=== PATIENT | female | born 1975 | race Caucasian/White ===

== ENCOUNTER 2016-12-02 12:34 | Inpatient (IN) | payer MEDICAID ==
[~2016-12-02] VITALS: Ht 154.9 cm; Wt 95.7 kg
[~2016-12-02 12:34] MED LIST: ACET1TAB40 PO; AMOX500C2 PO; IBUP-1542 PO
[2016-12-02] MEDS ORDERED: SOD CHLORIDE 0.9% 1,000 ML IV STA (15:54)
--- NOTE | 2016-12-02 16:16 | RADRPT ---
PROCEDURE: XR Chest. CLINICAL INDICATION: Abdominal pain TECHNIQUE: Single frontal view of the chest was obtained COMPARISON: None FINDINGS: No pleural effusion or pneumothorax. No consolidation. Bibasilar atelectasis. Top normal cardiomediastinal silhouette. No acute osseous abnormality. IMPRESSION: No acute cardiopulmonary disease. Low lung volumes with bibasilar atelectasis. RPTAT: EE Yohana Zaidi Physician Date Time Electronically viewed and signed by Yohana Zaidi Physician on 12/02/2016 16:15 /
[2016-12-02 16:20] LABS: ABNORMAL IP MESSAGE 1; HEMATOCRIT 15.1 % (37.0-47.0); MEAN CORPUSCULAR HEMOGLOBIN 30.8 pg (29.0-33.0); MEAN CORPUSCULAR HGB CONC 34.4 g/dl (32.0-37.0); MEAN CORPUSCULAR VOLUME 89.3 fl (82.0-101.0); MEAN PLATELET VOLUME 10.3 fl (7.4-10.4); NUCLEATED RED BLOOD CELLS% 8.7 /100WBC (0.0-0.0); RED BLOOD COUNT 1.69 10^6/ul (4.20-5.40); WHITE BLOOD COUNT 1.4 10^3/ul (4.8-10.8)
[2016-12-02 16:23] LABS: ADD UMIC NO; UR ASCORBIC ACID 40 mg/dL (NEGATIVE); UR BACTERIA FEW /HPF (NONE SEEN); UR BILIRUBIN (Dip) NEGATIVE (NEGATIVE); UR BLOOD (Dip) NEGATIVE (NEGATIVE); UR CLARITY SLIGHTLY CLOUDY (CLEAR); UR COLOR YELLOW (YELLOW); UR GLUCOSE (Dip) NEGATIVE (NEGATIVE); UR KETONES (Dip) NEGATIVE (NEGATIVE); UR LEUKOCYTE ESTERASE (Dip) NEGATIVE Leu/ul (NEGATIVE); UR MUCUS FEW /HPF (NONE SEEN); UR NITRITE (Dip) NEGATIVE (NEGATIVE); UR RBC 0 /HPF (0-5); UR SPECIFIC GRAVITY (Dip) 1.021 (1.003-1.030); UR SQUAMOUS EPITHELIAL CELL MODERATE /HPF (FEW); UR TOTAL PROTEIN (Dip) NEGATIVE (NEGATIVE); UR UROBILINOGEN (Dip) NEGATIVE (NEGATIVE)
[2016-12-02 16:28] LABS: ALANINE AMINOTRANSFERASE 127 IU/L (13-69); ALBUMIN 4.4 g/dl (3.3-4.9); ALBUMIN/GLOBULIN RATIO 1.29; ALKALINE PHOSPHATASE 194 IU/L (42-121); ANION GAP 14 (8-16); ASPARTATE AMINO TRANSFERASE 76 IU/L (15-46); BILIRUBIN,INDIRECT 0.4 mg/dl (0-1.1); BILIRUBIN,TOTAL 0.4 mg/dl (0.2-1.3); BLOOD UREA NITROGEN 14 mg/dl (7-20); CALCIUM 9.2 mg/dl (8.4-10.2); CARBON DIOXIDE 25 mmol/L (21-31); CHLORIDE 107 mmol/L (97-110); CREATININE 0.81 mg/dl (0.44-1.00); GLUCOSE 104 mg/dl (70-220); SODIUM 142 mmol/L (135-144); TOTAL PROTEIN 7.8 g/dl (6.1-8.1)
[2016-12-02 16:32] LABS: HEMOGLOBIN 5.2 g/dl (12.0-16.0); PLATELET COUNT 15 10^3/UL (140-415); POSITIVE DIFF @See below
[2016-12-02 16:41] LABS: TROPONIN-I < 0.012 ng/ml (0.00-0.12)
--- NOTE | 2016-12-02 16:54 | ERA ---
ER Documentation Chief Complaint Date/Time DATE: 12/02/16 TIME: 16:51 Chief Complaint fatigue, north, ringing in ears, bodyaches, told at clinic hg 5 HPI 41-year-old woman referred here by clinic for anemia. Patient denies previous anemia although states she has been feeling dizzy lately and has a long history of menorrhagia. Suffering from headaches for the last 2 weeks. Denies active bleeding at this time, denies melena or blood per rectum, no fevers or chills, no chest pain or shortness of breath. Patient denies abdominal pain, no loss of consciousness, no blurry vision. ROS All systems reviewed and are negative except as per history of present illness. Medications Home Meds Discontinued Scripts Amoxicillin* (Amoxicillin*) 500 Mg Cap, 500 MG PO TID, #30 CAP Prov:SUNIL ZEPEDA MD 08/18/15 Acetaminophen-Codeine* (Acetaminophen-Cod #3*) 300-30 Mg Tab, 1 TAB PO Q4H Y for PAIN, #8 TAB Prov:SUNIL ZEPEDA MD 08/18/15 Ibuprofen* (Motrin*) 600 Mg Tab, 600 MG PO Q6, #14 TAB Prov:SUNIL ZEPEDA MD 08/18/15 Allergies Allergies: Coded Allergies: No Known Allergy (Unverified , 12/03/16) PMhx/Soc History of Surgery: No Anesthesia Reaction: No Hx Neurological Disorder: Yes (Seizures) Hx Respiratory Disorders: No Hx Cardiac Disorders: No Hx Psychiatric Problems: No Hx Miscellaneous Medical Probl: Yes (Anemia) Hx Alcohol Use: No Hx Substance Use: No Hx Tobacco Use: No Smoking Status: Never smoker FmHx Family History: No diabetes Physical Exam Vitals Vital Signs Date Time Temp Pulse Resp B/P Pulse Ox O2 Delivery O2 Flow Rate FiO2 12/02/16 17:52 98.7 76 18 130/73 99 Room Air 12/02/16 16:05 98.7 82 18 118/62 99 Room Air 12/02/16 13:01 99.4 87 20 115/58 99 Physical Exam GENERAL: Well-developed, well-nourished, appears anemic, afebrile HEENT: Dry mucous membranes, pale conjunctiva, no cervical spine tenderness or step-off deformities, no goiter, no jaundice or icterus, extraocular movements intact without pain. No submandibular induration, and no pharyngeal erythema NEURO: Alert and oriented 3, cranial nerves II through XII intact bilaterally, pupils equal round reactive to light, no focal deficits or facial asymmetry, sensation intact distally Strength 5/5 in upper and lower extremities bilaterally CARDIAC: Regular rate and rhythm, no murmurs rubs or gallops LUNGS: Clear bilaterally no wheezing crackles or stridor ABDOMEN: Soft nontender, no guarding, no rigidity, no rebound, no psoas sign no obturator sign. Normoactive bowel sounds SKIN: Warm and dry to touch, no abrasions, contusions, or hematomas, no lacerations, no ecchymosis, no target lesions, and without ulcers EXTREMITIES: No clubbing cyanosis or edema, calves are bilaterally symmetrical, no Homans sign, no popliteal cord sign. Distal pulses equal and bilateral PSYCH: Normal affect without agitation or irritability Result Diagram: 12/04/16 0640 12/04/16 0640 Results 24 hrs Laboratory Tests Test 12/02/16 15:15 12/02/16 18:10 White Blood Count 1.410^3/ul Red Blood Count 1.6910^6/ul Hemoglobin 5.2g/dl Hematocrit 15.1% Mean Corpuscular Volume 89.3fl Mean Corpuscular Hemoglobin 30.8pg Mean Corpuscular Hemoglobin Concent 34.4g/dl Red Cell Distribution Width 14.0% Platelet Count 1510^3/UL Mean Platelet Volume 10.3fl Neutrophils % % Segmented Neutrophils % (Manual) 12% Band Neutrophils % (Manual) 1% Lymphocytes % % Lymphocytes % (Manual) 87% Monocytes % % Monocytes % (Manual) 1% Eosinophils % % Basophils % % Nucleated Red Blood Cells % 8.7/100WBC Neutrophils # 10^3/ul Neutrophils # (Manual) 0.210^3/ul Band Neutrophils # 0.010^3/ul Absolute Lymphocytes (Manual) 1.210^3/ul Lymphocytes # 1.210^3/ul Monocytes # 0.010^3/ul Absolute Monocytes (Manual) 0.010^3/ul Eosinophils # 10^3/ul Basophils # 10^3/ul Nucleated Red Blood Cells # 10^3/ul Pathologist Review (Hematology) CH Urine Color YELLOW Urine Clarity SLIGHTLY CLOUDY Urine pH 6.0 Urine Specific [place] 1.021 Urine Ketones NEGATIVEmg/dL Urine Nitrite NEGATIVEmg/dL Urine Bilirubin NEGATIVEmg/dL Urine Urobilinogen NEGATIVEmg/dL Urine Leukocyte Esterase NEGATIVELeu/ul Urine Microscopic RBC 0/HPF Urine Microscopic WBC 1/HPF Urine Squamous Epithelial Cells MODERATE/HPF Urine Bacteria FEW/HPF Urine Mucus FEW/HPF Urine Hemoglobin NEGATIVEmg/dL Urine Glucose NEGATIVEmg/dL Urine Total Protein NEGATIVEmg/dl Urine Test NEGATIVE Miscellaneous Test Sodium Level 142mmol/L Potassium Level 4.0mmol/L Chloride Level 107mmol/L Carbon Dioxide Level 25mmol/L Anion Gap 14 Blood Urea Nitrogen 14mg/dl Creatinine 0.81mg/dl Glucose Level 104mg/dl Calcium Level 9.2mg/dl Total Bilirubin 0.4mg/dl Direct Bilirubin 0.00mg/dl Indirect Bilirubin 0.4mg/dl Aspartate Amino Transf (AST/SGOT) 76IU/L Alanine Aminotransferase (ALT/SGPT) 127IU/L Alkaline Phosphatase 194IU/L Troponin I < 0.012ng/ml Total Protein 7.8g/dl Albumin 4.4g/dl Globulin 3.40g/dl Albumin/Globulin Ratio 1.29 Lipase 40U/L Alpha Fetoprotein 1.44IU/L Hepatitis A IgM Antibody NON-REACTIVE Hepatitis A Antibody Total POSITIVE Hepatitis B Surface Antigen NEGATIVE Hepatitis B Surface Antibody NEGATIVE Hepatitis B Core Total Antibody NEGATIVE Hepatitis C Antibody NEGATIVE Hepatitis C RNA (PCR) IUs/ml <15 NOT DETECTEDIU/mL Hepatitis C RNA (PCR) log IUs/ml <1.18 NOT DETECTEDLog Hepatitis C RNA Comment SEE NOTE Hemoglobin A1c % Current Medications Medications (Trade) Dose Ordered Sig/Nathan Route PRN Reason Start Time Stop Time Status Last Admin Dose Admin Sodium Chloride (NS) 1,000 ml @ 1,000 mls/hr Q1H STAT IV 12/02/16 15:54 12/02/16 16:53 DC 12/02/16 16:04 Acetaminophen (Tylenol Tab) 325 mg STK-MED ONCE .ROUTE 12/02/16 18:15 12/02/16 18:16 DC Procedures/MDM IV line was established patient was placed on field marketing lead rhythm strip revealed a sinus rhythm at about 80 bpm with upright P and T waves. Patient was afebrile. EKG performed, read by me: 77 bpm, normal sinus rhythm, normal axis, no acute ST segment changes, narrow QRS complex, with good R-wave progression in precordial leads. I administered 1 L normal saline intravenously and acetaminophen 650 mg p.o. for complaints of pain. Initial CBC reveals pancytopenia with a hemoglobin of 5.2, WBCs 1.4, liver function tests revealed mild transaminitis, electrolytes unremarkable. Urinalysis negative for infection. I ordered transfusion 1 unit PRBC IV over 2 hours. Patient will be admitted to [facility] for continued medical management Departure Diagnosis: Primary Impression: Symptomatic anemia Additional Impressions: Pancytopenia Menorrhagia Qualified Code: N92.1 - Menorrhagia with irregular cycle Condition: EREN Herrera MD Dec 02, 2016 16:54
[2016-12-02 18:03] LABS: HEPATITIS B CORE ANTIBODY NEGATIVE (NEGATIVE)
[2016-12-02] MEDS ORDERED: ACETAMINOPHEN 325 MG TAB ONE (18:15)
[2016-12-02 18:29] LABS: LYMPHOCYTES # 1.2 10^3/ul (0.8-2.9); MONOCYTES % (M) 1 % (0-11)
[2016-12-02] MEDS ORDERED: ACETAMINOPHEN 650 MG SUPP PR PRN (19:30)
[2016-12-02] MEDS ORDERED: ONDANSETRON 4 MG INJ IV PRN (19:30)
[2016-12-02] MEDS ORDERED: NACL 0.9% 3 ML SYG IV SCH (19:30)
--- NOTE | 2016-12-02 22:55 | RADRPT ---
PROCEDURE: CT Brain without contrast. CLINICAL INDICATION: Headaches and pancytopenia TECHNIQUE: A CT of the brain was performed on a [employer] CT scanner utilizing axial imaging f rom the skull base through the vertex without IV contrast. Multiplanar reformatted images were made . Images were reviewed on a PACS workstation. The CTDIvol is 44.73 mGy and the DLP is 720.23 mGycm . One of the following 3 dose reduction techniques were used during this CT examination: 1) Automated exposure control 2) Adjustment of the mA +/- kV according to patient size or 3) Use of iterative reconstruction technique COMPARISON: None FINDINGS: There is no intracranial hemorrhage, mass effect, or midline shift. No extra-axial fluid collection is seen. The ventricles and sulci are normal in size and configuration. The density of the brain is normal, and the marr white matter differentiation appears well-preserved. The visualized scalp and calvarium are normal. The bilateral orbits are normal. The bilateral parana joseph sinuses, mastoid air cells and middle ear cavities are clear. IMPRESSION: 1. No evidence of acute intracranial hemorrhage, infarcts, or acute intracranial pathology. 2. Normal noncontrast head CT. RPTAT: [facility] .Yamileth Holm MD, Date Time Electronically viewed and signed by .Yamileth Holm MD, MD on 12/02/2016 22:54 .C/
[2016-12-02 23:14] VITALS: TEMP 98.5
--- NOTE | 2016-12-02 23:22 | HP ---
Date/Time of Note Date/Time of Note DATE: 12/02/16 TIME: 23:21 Assessment/Plan VTE Prophylaxis VTE Prophylaxis Intervention: SCD's Assessment/Plan Chief Complaint/Hosp Course This is a 41-year-old female being admitted to the telemetry floor for: #1 symptomatic anemia: Hemoglobin of 5.2 on admission. Will check iron studies. 2 units of PRBCs ordered. This along with #2 is concerning for a malignant process. Will order a reticulocyte count, haptoglobin level, lactic dehydrogenase level. Will check RBC indices. Will consult hematology. Will also order vaginal ultrasound, and consult CORPORATION SECRETARY if indicated. #2 pancytopenia: Patient leukopenic, anemic, and thrombocytopenic This likely is concerning for underlying malignant process. Please see #1 for labs ordered. Will consult hematology for further assistance and possible bone marrow biopsy. #3 menorrhagia: We will check a vaginal ultrasound, urine test was negative. Will also order a CT scan of the abdomen and pelvis with and without contrast. #4 persistent headaches: Reported 8 month history of headaches. CAT scan of the brain was normal. Will order an MRI of the brain. #5 transaminitis: We will check a CT of the abdomen and pelvis. Will check hepatitis panel. #6 DVT GI prophylaxis: SCDs, Protonix Further treatment strategy will be implemented as per the clinical course Problems: HPI/ROS Admit Date/Time Admit Date/Time Hx of Present Illness cc: fatigue, low hgb, headache for 8 months This is a 41-year-old female who comes in today from urgent care with symptoms of symptomatic anemia with hemoglobin of 5 and headaches for approximately 8 weeks. Patient states that for the past 2 weeks she has been feeling dizzy and fatigued which led her to go to the urgent care. She was found there to have a hemoglobin of 5 and was told to come to the ER. She states that for the past 2 months she did not have her normal. And then recently restarted with heavy bleeding. Patient also reports that she has been dealing with daily headaches that have been occurring for approximately 8 months. They occur a day and at night. She denies any weight loss. She does report shortness of breath and again feeling fatigued and tired easily. Denies any hematuria denies any hematemesis denies any hematochezia. She had a mammogram approximately 3 months ago which she states was normal. Allergies: NKDA Medications: None ROS Const: As per HPI Eyes : No pain discharge or redness or change in visual acuity ENT: No pain, sore throat, congestion, congestion, dysphagia or discharge Respiratory: No shortness of breath, cough, sputum, wheezing, or pleuritic pain Cardiovascular: No chest pain, palpitation, PND, or edema GI : no change in appetite, abdominal pain, nausea, vomiting, diarrhea, constipation, or change in the color his stool Genitourinary: As per HPI Musculoskeletal: No joint pain, back pain, neck pain, restricted range of motion in neck or joints Skin: No rash, bruising or hives Neuro: As per HPI Endocrine: No polyuria, polydipsia, temperature intolerance Psych: No hallucination, depression, anxiety or suicidal ideation PMH/Family/Social Past Medical History History of epilepsy, last seizure 2 years ago Past Surgical History Past Surgical Hx: no surgical history Family History Significant Family History: other (Anemia, diabetes mellitus) Social History Alcohol Use: none Smoking Status: Never smoker Drug Use: none Exam/Review of Systems Vital Signs Vitals Vital Signs Date Time Temp Pulse Resp B/P Pulse Ox O2 Delivery O2 Flow Rate FiO2 12/02/16 23:14 98.5 71 16 116/73 99 Room Air Exam Exam General: Patient is sitting in bed in no acute distress. Patient does appear slightly pale, obese HEENT: Atraumatic, normocephalic. The pupils are equal, round and reactive. Extraocular motor are intact, conjunctiva pale bilaterally Neck: Supple with full range of motion. No rigidity or meningismus Lungs: Clear to auscultation bilaterally no crackles rales or wheezing Heart: Normal S1-S2, Regular rhythm and rate. Abdomen: Soft , nontender, nondistended , bowel sounds are present. No guarding no rebound tenderness , No masses or organomegaly. No costovertebral temporal angle mass Extremities: Normal to inspection, no edema no cyanosis Neurologic: Normal mental status, speech normal, cranial nerves II through XII are intact, motor and sensory are intact, no focal weakness Genital exam: Deferred Skin: Patient does appear slightly pale, conjunctiva pale bilaterally Additional Comments PROCEDURE: CT Brain without contrast. CLINICAL INDICATION: Headaches and pancytopenia TECHNIQUE: A CT of the brain was performed on a [employer] CT scanner utilizing axial imaging from the skull base through the vertex without IV contrast. Multiplanar reformatted images were made. Images were reviewed on a PACS workstation. The CTDIvol is 44.73 mGy and the DLP is 720.23 mGycm. One of the following 3 dose reduction techniques were used during this CT examination: 1) Automated exposure control 2) Adjustment of the mA +/- kV according to patient size or 3) Use of iterative reconstruction technique COMPARISON: None FINDINGS: There is no intracranial hemorrhage, mass effect, or midline shift. No extra- axial fluid collection is seen. The ventricles and sulci are normal in size and configuration. The density of the brain is normal, and the marr white matter differentiation appears well-preserved. The visualized scalp and calvarium are normal. The bilateral orbits are normal. The bilateral paranasal sinuses, mastoid air cells and middle ear cavities are clear. IMPRESSION: 1. No evidence of acute intracranial hemorrhage, infarcts, or acute intracranial pathology. 2. Normal noncontrast head CT. RPTAT: [facility] .Yamileth Holm MD, Date Time Electronically viewed and signed by .Yamileth Holm MD, MD on 12/02/2016 22: 54 .C/ CC: VELVET LIVINGSTON PROCEDURE: XR Chest. CLINICAL INDICATION: Abdominal pain TECHNIQUE: Single frontal view of the chest was obtained COMPARISON: None FINDINGS: No pleural effusion or pneumothorax. No consolidation. Bibasilar atelectasis. Top normal cardiomediastinal silhouette. No acute osseous abnormality. IMPRESSION: No acute cardiopulmonary disease. Low lung volumes with bibasilar atelectasis. RPTAT: EE Physician Ramona Date Time Electronically viewed and signed by Physician Ramona on 12/02/2016 16 :15 GC/ CC: EREN JIMENEZ MD Labs Result Diagram: 12/02/16 1515 12/02/16 1515 Medications Medications Current Medications Sodium Chloride (NS) 1,000 ml @ 100 mls/hr Q10H IV ; Start 12/02/16 at 19:15 Ondansetron HCl (Zofran Inj) 4 mg Q6H PRN IV NAUSEA AND/OR VOMITING; Start at 19:30 Acetaminophen (Tylenol Supp) 650 mg Q6H PRN SD PAIN LEVEL 1-3 OR FEVER; Start 12/02/16 at 19:30 Furosemide (Lasix) 20 mg ONCE ONCE IV ; Start 12/02/16 at 23:30; Stop at 23:31; Status VELVET BEAR Dec 02, 2016 23:22
[2016-12-02 23:25] VITALS: Ht 154.9 cm; Wt 95.7 kg
[2016-12-02 23:30] LABS: RETICULOCYTE COUNT % 0.8 % (0.5-1.5)
[2016-12-02] MEDS ORDERED: FUROSEMIDE 20 MG INJ IV ONE (23:30)
[2016-12-03] VITALS (10 sets, daily range): BP systolic 108–148; BP diastolic 61–89; PULSE 64–81; RESP 17–20
[2016-12-03] MEDS: SOD CHLORIDE 0.9% 1,000 ML IV SCH ×3 (00:25→15:15)
[2016-12-03] MEDS: PANTOPRAZOLE 40 MG INJ IV SCH (06:57)
--- NOTE | 2016-12-03 07:52 | RADRPT ---
PROCEDURE: US Pelvis. CLINICAL INDICATION: Menorrhagia. Pancytopenia. TECHNIQUE: Sonographic evaluation of the pelvis was performed utilizing both transabdominal and tr ansvaginal technique.Curved array transabdominal transducer technique as well as a high frequency en dovaginal probe was utilized. Images were reviewed on the high-resolution PACS workstation. COMPARISON: No prior studies are available for comparison. FINDINGS: The uterus is normal in size, echogenicity, and morphology and measures 8.5 x 4.9 x 5.2 cm. The en dometrium is mildly thickened measuring 15.5 mm. The right ovary measures 5.7 ml in volume. The le ft ovary measures 3.5 ml in volume. The ovaries are symmetric in size, echogenicity, flow, and morp hology. . There are no adnexal masses. There is no significant free fluid in the pelvis. No other i ncidental abnormality is identified. IMPRESSION: 1. Unremarkable ultrasound of the pelvis. RPTAT: QQ .Michele Kelly MD, MD Date Time Electronically viewed and signed by .Michele Kelly MD, on 12/03/2016 07:52 .L/
[2016-12-03 09:39] LABS: IRON 215 ug/dl (35-150)
[2016-12-03 09:42] LABS: ALBUMIN 4.1 g/dl (3.3-4.9); ALBUMIN/GLOBULIN RATIO 1.24; BILIRUBIN,INDIRECT 0.8 mg/dl (0-1.1); BILIRUBIN,TOTAL 0.8 mg/dl (0.2-1.3); CALCIUM 8.8 mg/dl (8.4-10.2); CREATININE 0.69 mg/dl (0.44-1.00); MAGNESIUM 1.9 mg/dl (1.7-2.5); PHOSPHORUS 3.7 mg/dl (2.5-4.9); POTASSIUM 4.2 mmol/L (3.5-5.1); TOTAL PROTEIN 7.4 g/dl (6.1-8.1)
[2016-12-03 09:49] LABS: TOTAL IRON BINDING CAPACITY 367 ug/dl (241-421)
[2016-12-03 14:16] LABS: ABNORMAL IP MESSAGE 1; HEMATOCRIT 19.5 % (37.0-47.0); MEAN CORPUSCULAR HEMOGLOBIN 30.2 pg (29.0-33.0); MEAN CORPUSCULAR HGB CONC 34.9 g/dl (32.0-37.0); MEAN CORPUSCULAR VOLUME 86.7 fl (82.0-101.0); MEAN PLATELET VOLUME 10.1 fl (7.4-10.4); NUCLEATED RED BLOOD CELLS% 5.6 /100WBC (0.0-0.0); PLATELET COUNT 35 10^3/UL (140-415); RED BLOOD COUNT 2.25 10^6/ul (4.20-5.40); RED CELL DISTRIBUTION WIDTH 14.2 % (11.5-14.5); WHITE BLOOD COUNT 1.8 10^3/ul (4.8-10.8)
[2016-12-03 14:26] LABS: INR 1.06; PROTIME 13.8 Sec (12.2-14.2); PT RATIO 1.1
[2016-12-03 14:27] LABS: PARTIAL THROMBOPLASTIN TIME 27.6 Sec (25.0-35.0)
[2016-12-03 14:46] LABS: POSITIVE DIFF @See below
[2016-12-03 14:49] LABS: HEMOGLOBIN 6.8 g/dl (12.0-16.0)
[2016-12-03] MEDS ORDERED: LIDOCAINE 1% (MDV) 20 ML INJ ONE (15:09)
[2016-12-03] MEDS ORDERED: FENTAnyl 50 MCG/ML VIAL ONE (15:09)
[2016-12-03] MEDS ORDERED: MIDAZOLAM 1 MG/ML 2 ML INJ ONE (15:09)
[2016-12-03 15:10] LABS: PATH REVIEW CH
[2016-12-03] MEDS ORDERED: SOD CHLORIDE 0.9% 100 ML ONE (15:28)
[2016-12-03] MEDS ORDERED: IOHEXOL 300MG/ML 150 ML BTL ONE (15:28)
[2016-12-03 16:02] LABS: ANISOCYTOSIS 1+ (0-0); ERYTHROBLAST% (NRBC) (M) 7 % (0-0); HYPOCHROMASIA 1+ (0-0); PLATELET ESTIMATE DECREASED; POIKILOCYTOSIS 2+ (0-0); POLYCHROMASIA 1+ (0-0)
--- NOTE | 2016-12-03 16:30 | RADRPT ---
PROCEDURE: CT Abdomen and Pelvis with contrast. CLINICAL INDICATION: Abdominal pain, back pain, pancytopenia TECHNIQUE: CT of the abdomen and pelvis was performed on a multi-detector scanner following the un complicated IV administration of 100 cc of Omnipaque 300. Coronal and sagittal images were reformat elena from the axial data set. One or more of the following dose reduction techniques were used: auto mated exposure control, adjustment of the mA and/or kV according to patient size, use of iterative r econstruction technique. CTDI = 21.23 mGy. DLP = 1239.36 mGy-cm. COMPARISON: Ultrasound, 12/03/2016 FINDINGS: The lung bases are clear. The heart size is normal, without pericardial effusion. Cholelithiasis i s noted, without evidence for cholecystitis. Splenomegaly is noted, measuring 15 cm, without evidenc e of focal mass. Liver, biliary tree, pancreas, adrenal glands and kidneys are unremarkable. No urol ithiasis or obstructive uropathy is identified. The stomach is grossly unremarkable. There is no abdominal aortic aneurysm or dissection. There is no retroperitoneal lymphadenopathy. The carine hepatis region is clear. No bowel obstruction, free intraperitoneal air or abscess is identified. The appendix is well visual ized and normal. There is no diverticulosis, diverticulitis or colitis. Urinary bladder, uterus and adnexa are grossly unremarkable. No pelvic mass, free fluid or lymphadenopathy is identified. The surrounding osseous structures are remarkable for mild degenerative enthesopathy of the spine. No osteolytic or osteoblastic lesion is detected. IMPRESSION: 1. Splenomegaly is noted, measuring 15 cm in maximal dimension. 2. Cholelithiasis is seen, without evidence for cholecystitis. 3. No mass, lymphadenopathy, or focal acute inflammatory process is identified. RPTAT: [facility] .Shay Reid MD, Date Time Electronically viewed and signed by .Shay Reid MD, MD on 12/03/2016 16:30 .R/
--- NOTE | 2016-12-03 16:34 | RADRPT ---
PROCEDURE: CT GUIDED PERCUTANEOUS BONE MARROW BIOPSY AND ASPIRATION CLINICAL INDICATION: Pancytopenia TECHNIQUE: Informed consent was obtained from the patient following careful explanation of the risks and benefi ts of the procedure. The procedure was performed under general anesthesia. DLP n/a (Solutions Delivery Consultant) CTDIvol n/a ([employer] Delivery Consultant) One or more of the following post reduction techniques were used: - Automated exposure control. - Adjustment of the mA and/or Kv according to patient's size. - Use of iterative reconstruction technique The patient was placed prone on the CT table. Multiple axial CT images through the pelvis were acqui red without contrast. The iliac bone was localized. A site in the patient's back was selected and ma rked. The area was prepped and draped in the usual sterile fashion. 1% lidocaine was utilized. Unde r CT guidance a 11 gauge co-axial core biopsy needle was advanced into the left iliac bone, parallel to the SI joint.. Only a tiny amount of bone marrow aspirate could be obtained. The needle was then redirected into a different area of the left iliac bone. Still only a tiny amount of blood could be aspirated. Subsequently the needle was advanced into the bone and a core bone biopsy was obtained. There were no immediate complications. COMPARISON: none FINDINGS: As above. Mostly dry tap. Only a small amount of marrow could be aspirated. RPTAT: AA IMPRESSION: Uncomplicated CT-guided bone marrow biopsy and aspiration. Only a small amount of marrow could be aspirated. .Doug Gil MD, MD Date Time Electronically viewed and signed by .Doug Gil MD, on 12/03/2016 16:33 .S/
--- NOTE | 2016-12-03 17:51 | PN ---
Date/Time of Note Date/Time of Note DATE: 12/03/16 TIME: 17:50 Assessment/Plan VTE Prophylaxis VTE Prophylaxis Intervention: SCD's Lines/Catheters IV [facility]from [facility] Saline Lock Urinary Cath still in place: No Assessment/Plan Assessment/Plan #1 symptomatic anemia: getting PRBC transfusino, #2 pancytopenia: Patient leukopenic, anemic, and thrombus cytopenia. This likely is concerning for underlying malignant process. H & O Dr.Sheila Haines has been consulted to see pt #3 menorrhagia: We will check a vaginal ultrasound, urine test was negative. Will also order a CT scan of the abdomen and pelvis with and without contrast. #4 persistent headaches: Reported 8 month history of headaches. CAT scan of the brain was normal. Will order an MRI of the brain. #5 transaminitis: We will check a CT of the abdomen and pelvis. Will check hepatitis panel. #6 DVT GI prophylaxis: SCDs, Protonix Subjective 24 Hr Interval Summary Free Text/Dictation gettign PRBC and FFP now, Pt stable, afebrile, pancytopenic Exam/Review of Systems Vital Signs Vitals Vital Signs Date Time Temp Pulse Resp B/P Pulse Ox O2 Delivery O2 Flow Rate FiO2 12/03/16 16:46 74 12/03/16 16:16 98.0 18 118/88 97 12/02/16 23:14 Room Air Intake and Output 12/02/16 12/02/16 12/03/16 15:00 23:00 07:00 Intake Total 750 ml 1000 ml Balance 750 ml 1000 ml Exam Constitutional: alert Psych: no complaints Eyes: nl conjunctiva ENMT: nl external ears & nose Neck: non-tender, supple Respiratory: clear to auscultation, normal air movement Cardiovascular: nl pulses, regular rate and rhythm Gastrointestinal: non-tender, soft Musculoskeletal: nl extremities to inspection, nl gait and stance Neurological: MANAGER SPRING II-XII intact, nl mental status, nl speech, nl strength Results Result Diagram: 12/03/16 1352 12/03/16 0902 Results 24 hrs Laboratory Tests Test 12/02/16 18:10 12/02/16 23:00 12/03/16 09:02 12/03/16 13:52 Hemoglobin A1c Absolute Reticulocyte Count 0.014 L Percent Reticulocyte Count 0.8 Sodium Level 143 Potassium Level 4.2 Chloride Level 110 Carbon Dioxide Level 24 Anion Gap 13 Blood Urea Nitrogen 13 Creatinine 0.69 Glucose Level 92 Calcium Level 8.8 Phosphorus Level 3.7 Magnesium Level 1.9 Iron Level 215 H Total Iron Binding Capacity 367 Percent Iron Saturation 59 H Ferritin 562.0 H Total Bilirubin 0.8 Direct Bilirubin 0.00 Indirect Bilirubin 0.8 Aspartate Amino Transf (AST/SGOT) 59 H Alanine Aminotransferase (ALT/SGPT) 108 H Alkaline Phosphatase 200 H Lactate Dehydrogenase 1050 H Total Protein 7.4 Albumin 4.1 Globulin 3.30 H Albumin/Globulin Ratio 1.24 White Blood Count 1.8 #L Red Blood Count 2.25 #L Hemoglobin 6.8 #*L Hematocrit 19.5 #L Mean Corpuscular Volume 86.7 Mean Corpuscular Hemoglobin 30.2 Mean Corpuscular Hemoglobin Concent 34.9 Red Cell Distribution Width 14.2 Platelet Count 35 #L Mean Platelet Volume 10.1 Neutrophils % Segmented Neutrophils % (Manual) 6 L Band Neutrophils % (Manual) 1 Lymphocytes % Lymphocytes % (Manual) 88 H Monocytes % Eosinophils % Basophils % Blast Cells % (Manual) 5.0 H Nucleated Red Blood Cells % 7 H Neutrophils # Neutrophils # (Manual) 0.1 L Band Neutrophils # 0.0 Absolute Lymphocytes (Manual) 1.5 Lymphocytes # Monocytes # Eosinophils # Basophils # Nucleated Red Blood Cells # Platelet Estimate DECREASED Platelet Morphology Comment @See below Polychromasia 1+ Hypochromasia 1+ Poikilocytosis 2+ Anisocytosis 1+ Macrocytosis 1+ Prothrombin Time 13.8 Prothrombin Time Ratio 1.1 INR International Normalized Ratio 1.06 Activated Partial Thromboplast Time 27.6 Medications Medications Current Medications Sodium Chloride (NS) 1,000 ml @ 100 mls/hr Q10H IV Last administered on 00:25; Admin Dose 100 MLS/HR; Start 12/02/16 at 19:15 Ondansetron HCl (Zofran Inj) 4 mg Q6H PRN IV NAUSEA AND/OR VOMITING; Start at 19:30 Acetaminophen (Tylenol Supp) 650 mg Q6H PRN PA PAIN LEVEL 1-3 OR FEVER; Start 12/02/16 at 19:30 Pantoprazole (Protonix Iv) 40 mg DAILY@06 IV Last administered on 12/03/16 06 :57; Admin Dose 40 MG; Start 12/03/16 at 06:45 MILTON OLIVIA MD Dec 03, 2016 17:51
[2016-12-03 18:40] LABS: ABNORMAL IP MESSAGE 1; HEMATOCRIT 20.6 % (37.0-47.0); HEMOGLOBIN 7.2 g/dl (12.0-16.0); MEAN CORPUSCULAR HEMOGLOBIN 30.5 pg (29.0-33.0); MEAN CORPUSCULAR VOLUME 87.3 fl (82.0-101.0); MEAN PLATELET VOLUME 10.8 fl (7.4-10.4); NUCLEATED RED BLOOD CELLS% 8.8 /100WBC (0.0-0.0); PLATELET COUNT 36 10^3/UL (140-415); RED BLOOD COUNT 2.36 10^6/ul (4.20-5.40); WHITE BLOOD COUNT 1.5 10^3/ul (4.8-10.8)
[2016-12-03 18:49] LABS: POSITIVE DIFF @See below
[2016-12-03 18:55] LABS: INR 1.07; PROTIME 13.9 Sec (12.2-14.2); PT RATIO 1.1
[2016-12-03 18:56] LABS: PARTIAL THROMBOPLASTIN TIME 29.4 Sec (25.0-35.0)
[2016-12-03 19:42] LABS: EOSINOPHILS % (M) 1 % (0-7); ERYTHROBLAST% (NRBC) (M) 12 % (0-0); GIANT THROMBO% (M) 2 % (0-0); HYPOCHROMASIA 1+ (0-0); MONOCYTES % (M) 5 % (0-11); PLATELET ESTIMATE DECREASED; POIKILOCYTOSIS 2+ (0-0); POLYCHROMASIA 1+ (0-0); REACTIVE LYMPHOCYTES% (M) 13 % (0-0)
[2016-12-03] MEDS ORDERED: morphine 2 MG INJ IV PRN (21:00)
--- NOTE | 2016-12-03 22:16 | CONS ---
Date/Time of Note Date/Time of Note DATE: 12/03/16 TIME: 22:04 Assessment/Plan Assessment/Plan Chief Complaint/Hosp Course 41 yo with #Pancytopenia -peripheral blood demonstrates blasts consistent with leukemia -peripheral blood sent for flow cytometry for definitive diagnosis -BM bx done to evaluate amount of bone marrow involvement. Bone Marrow was sent for flow cytometry and cytogenetics -given the peripheral smear is consistent with leukemia pt will need to be transferred to high level of care as Acute Leukemia CANNOT be treated at this hospital. This is beyond my scope of practice and should be treated at a tertiary care center specializes in treating hematologic malignances and performing bone marrow transplants. Pt can be transferred to [facility], [facility] or [facility] who treat these diseases with specialized multidisciplinary teams -will f/u CBC tomorrow. continue to keep Hg> 8 and platelets > 10 -will draw blood cx and check UA as patient has very high chance of becoming infected given she does not have a functioning immune system. can hold on antibiotics for now, but if she spikes a fever would have a low threshold to start antibiotics Problems: Consultation Date/Type/Reason Admit Date/Time December 02, 2016 Date of Consultation: Dec 03, 2016 Type of Consultation: Hematology Reason for Consultation Pancytopenia Referring Provider: MILTON OLIVIA MD Hx of Present Illness 41 yo female no PMH who for the past 2 weeks has felt dizzy and weak. Her weakness and dizziness became so profound that she presented to the hospital barely able to walk. Pt state her last menstrual period was in September and was regular. She denies any abnormal vaginal bleeding or bleeding from the stool. She denies any weight loss nor recent travel. She does admit to taking Herbal Life for the past 3 months. In the ER patient was found to be severely pancytopenic with a WBC of 1.4, Hg 5.2 and platelet count of 15. Peripheral blood spear also shows circulating blasts consistent with leukemia. Pt has since had 2 units of PRBCs and 2 units of platelet transfusion. She underwent a bone marrow bx earlier today. Pt is currently comfortable. Constitutional: chills, diaphoresis, poor po Eyes: no complaints ENT: no complaints Respiratory: shortness of breath Cardiovascular: lightheadedness, no complaints, palpitations Gastrointestinal: no complaints Genitourinary: no complaints Musculoskeletal: bone/joint pain Skin: no complaints Neurologic: no complaints Psychological: no complaints Past Medical History DM HTN Past Surgical History Past Surgical Hx: no surgical history Family History Significant Family History: no pertinent family hx Social History Alcohol Use: none Smoking Status: Never smoker Drug Use: none Exam/Review of Systems Vital Signs Vitals Vital Signs Date Time Temp Pulse Resp B/P Pulse Ox O2 Delivery O2 Flow Rate FiO2 12/03/16 21:03 68 12/03/16 20:00 98.8 20 148/89 99 12/02/16 23:14 Room Air Intake and Output 12/02/16 12/02/16 12/03/16 15:00 23:00 07:00 Intake Total 750 ml 1000 ml Balance 750 ml 1000 ml Exam Constitutional: alert, oriented Psych: no complaints Head: normocephalic Eyes: nl conjunctiva ENMT: nl external ears & nose Neck: non-tender, supple Respiratory: clear to auscultation, normal air movement Cardiovascular: regular rate and rhythm Gastrointestinal: soft Musculoskeletal: nl extremities to inspection, nl gait and stance Extremities: normal pulses Results Result Diagram: 12/03/16 1812 12/03/16 0902 Results 24 hrs Laboratory Tests Test 12/02/16 23:00 12/03/16 09:02 12/03/16 13:52 12/03/16 18:12 Absolute Reticulocyte Count 0.014 L Percent Reticulocyte Count 0.8 Sodium Level 143 Potassium Level 4.2 Chloride Level 110 Carbon Dioxide Level 24 Anion Gap 13 Blood Urea Nitrogen 13 Creatinine 0.69 Glucose Level 92 Calcium Level 8.8 Phosphorus Level 3.7 Magnesium Level 1.9 Iron Level 215 H Total Iron Binding Capacity 367 Percent Iron Saturation 59 H Ferritin 562.0 H Total Bilirubin 0.8 Direct Bilirubin 0.00 Indirect Bilirubin 0.8 Aspartate Amino Transf (AST/SGOT) 59 H Alanine Aminotransferase (ALT/SGPT) 108 H Alkaline Phosphatase 200 H Lactate Dehydrogenase 1050 H Total Protein 7.4 Albumin 4.1 Globulin 3.30 H Albumin/Globulin Ratio 1.24 White Blood Count 1.8 #L 1.5 L Red Blood Count 2.25 #L 2.36 L Hemoglobin 6.8 #*L 7.2 L Hematocrit 19.5 #L 20.6 L Mean Corpuscular Volume 86.7 87.3 Mean Corpuscular Hemoglobin 30.2 30.5 Mean Corpuscular Hemoglobin Concent 34.9 35.0 Red Cell Distribution Width 14.2 14.0 Platelet Count 35 #L 36 L Mean Platelet Volume 10.1 10.8 H Neutrophils % Segmented Neutrophils % (Manual) 6 L 4 L Band Neutrophils % (Manual) 1 3 Lymphocytes % Lymphocytes % (Manual) 88 H 73 H Monocytes % Eosinophils % Basophils % Blast Cells % (Manual) 5.0 H Nucleated Red Blood Cells % 7 H 12 H Neutrophils # Neutrophils # (Manual) 0.1 L 0.1 L Band Neutrophils # 0.0 0.0 Absolute Lymphocytes (Manual) 1.5 1.0 Lymphocytes # Monocytes # Eosinophils # Basophils # Nucleated Red Blood Cells # Platelet Estimate DECREASED DECREASED Platelet Morphology Comment @See below @See below Polychromasia 1+ 1+ Hypochromasia 1+ 1+ Poikilocytosis 2+ 2+ Anisocytosis 1+ Macrocytosis 1+ Prothrombin Time 13.8 13.9 Prothrombin Time Ratio 1.1 1.1 INR International Normalized Ratio 1.06 1.07 Activated Partial Thromboplast Time 27.6 29.4 Reactive Lymphocytes % (Manual) 13 H Monocytes % (Manual) 5 Eosinophils % (Manual) 1 Reactive Lymphocytes # 0.1 H Absolute Monocytes (Manual) 0.0 L Giant Platelets 2 H Medications Medications Current Medications Sodium Chloride (NS) 1,000 ml @ 100 mls/hr Q10H IV Last administered on 00:25; Admin Dose 100 MLS/HR; Start 12/02/16 at 19:15 Ondansetron HCl (Zofran Inj) 4 mg Q6H PRN IV NAUSEA AND/OR VOMITING; Start at 19:30 Acetaminophen (Tylenol Supp) 650 mg Q6H PRN MD PAIN LEVEL 1-3 OR FEVER; Start 12/02/16 at 19:30 Pantoprazole (Protonix Iv) 40 mg DAILY@06 IV Last administered on 12/03/16 06 :57; Admin Dose 40 MG; Start 12/03/16 at 06:45 Morphine Sulfate (morphine) 2 mg Q4H PRN IV PAIN Last administered on 21:25; Admin Dose 2 MG; Start 12/03/16 at 21:00 OMAR ZARCO M.D. Dec 03, 2016 22:16
[2016-12-04 00:32] VITALS: BP 131/74; RESP 21
[2016-12-04 00:46] VITALS: PULSE 80
[2016-12-04 01:15] LABS: ABNORMAL IP MESSAGE 1; BASOPHILS % 0.7 % (0.0-2.0); EOSINOPHILS % 0.7 % (0.0-7.0); HEMATOCRIT 21.7 % (37.0-47.0); HEMOGLOBIN 7.5 g/dl (12.0-16.0); LYMPHOCYTES # 1.2 10^3/ul (0.8-2.9); MEAN CORPUSCULAR HEMOGLOBIN 29.4 pg (29.0-33.0); MEAN CORPUSCULAR HGB CONC 34.6 g/dl (32.0-37.0); MEAN CORPUSCULAR VOLUME 85.1 fl (82.0-101.0); MEAN PLATELET VOLUME 10.8 fl (7.4-10.4); MONOCYTE # 0.1 10^3/ul (0.3-0.9); MONOCYTES % 5.1 % (0.0-11.0); NEUTROPHIL # 0.1 10^3/ul (1.6-7.5); NEUTROPHILS % 9.5 % (39.0-77.0); NUCLEATED RED BLOOD CELLS # 0.2 10^3/ul (0.0-0.0); NUCLEATED RED BLOOD CELLS% 11.6 /100WBC (0.0-0.0); PLATELET COUNT 35 10^3/UL (140-415); RED BLOOD COUNT 2.55 10^6/ul (4.20-5.40); RED CELL DISTRIBUTION WIDTH 14.3 % (11.5-14.5); WHITE BLOOD COUNT 1.4 10^3/ul (4.8-10.8)
[2016-12-04] MEDS: SOD CHLORIDE 0.9% 1,000 ML IV SCH ×3 (01:15→11:15)
[2016-12-04 01:21] LABS: LYMPHOCYTES % 83.3 % (15.0-51.0); POSITIVE DIFF @See below
[2016-12-04 04:08] VITALS: BP 116/72; RESP 20
[2016-12-04 04:40] VITALS: PULSE 72
[2016-12-04] MEDS: PANTOPRAZOLE 40 MG INJ IV SCH (06:53)
[2016-12-04 07:39] LABS: ABNORMAL IP MESSAGE 1; HEMATOCRIT 26.2 % (37.0-47.0); HEMOGLOBIN 9.1 g/dl (12.0-16.0); MEAN CORPUSCULAR HEMOGLOBIN 29.2 pg (29.0-33.0); MEAN CORPUSCULAR HGB CONC 34.7 g/dl (32.0-37.0); MEAN PLATELET VOLUME 10.3 fl (7.4-10.4); NUCLEATED RED BLOOD CELLS% 12.3 /100WBC (0.0-0.0); RED BLOOD COUNT 3.12 10^6/ul (4.20-5.40); RED CELL DISTRIBUTION WIDTH 14.6 % (11.5-14.5); WHITE BLOOD COUNT 1.7 10^3/ul (4.8-10.8)
[2016-12-04 07:49] LABS: INR 1.07; PARTIAL THROMBOPLASTIN TIME 29.5 Sec (25.0-35.0); PROTIME 13.9 Sec (12.2-14.2); PT RATIO 1.1
[2016-12-04 07:57] LABS: ALBUMIN 4.4 g/dl (3.3-4.9); ALBUMIN/GLOBULIN RATIO 1.18; BILIRUBIN,INDIRECT 0.8 mg/dl (0-1.1); BILIRUBIN,TOTAL 0.8 mg/dl (0.2-1.3); CALCIUM 9.3 mg/dl (8.4-10.2); CREATININE 0.69 mg/dl (0.44-1.00); POTASSIUM 4.3 mmol/L (3.5-5.1); TOTAL PROTEIN 8.1 g/dl (6.1-8.1)
[2016-12-04 08:00] VITALS: PULSE 70
[2016-12-04 08:05] LABS: POSITIVE DIFF @See below
[2016-12-04 08:08] VITALS: BP 138/82; RESP 18
[2016-12-04 08:27] LABS: PLATELET COUNT 29 10^3/UL (140-415)
[2016-12-04 10:16] LABS: ANISOCYTOSIS 1+ (0-0); BURR CELLS 1+ (0-0); EOSINOPHILS % (M) 1 % (0-7); ERYTHROBLAST% (NRBC) (M) 13 % (0-0); MICROCYTOSIS 1+ (0-0); PLATELET ESTIMATE DECREASED; POIKILOCYTOSIS 1+ (0-0); POLYCHROMASIA 2+ (0-0); REACTIVE LYMPHOCYTES% (M) 6 % (0-0)
--- NOTE | 2016-12-04 18:54 | DS ---
Date/Time of Note Date/Time of Note DATE: 12/04/16 TIME: 18:54 Discharge Summary Admission/Discharge Info Admit Date/Time Dec 02, 2016 at 18:56 Discharge Date/Time Dec 04, 2016 at 11:50 Hx of Present Illness cc: fatigue, low hgb, headache for 8 months This is a 41-year-old female who comes in today from urgent care with symptoms of symptomatic anemia with hemoglobin of 5 and headaches for approximately 8 weeks. Patient states that for the past 2 weeks she has been feeling dizzy and fatigued which led her to go to the urgent care. She was found there to have a hemoglobin of 5 and was told to come to the ER. She states that for the past 2 months she did not have her normal. And then recently restarted with heavy bleeding. Patient also reports that she has been dealing with daily headaches that have been occurring for approximately 8 months. They occur a day and at night. She denies any weight loss. She does report shortness of breath and again feeling fatigued and tired easily. Denies any hematuria denies any hematemesis denies any hematochezia. She had a mammogram approximately 3 months ago which she states was normal. Allergies: NKDA Medications: None Hospital Course This is a 41-year-old female being admitted to the telemetry floor for: #1 symptomatic anemia: Hemoglobin of 5.2 on admission. Will check iron studies. 2 units of PRBCs ordered. This along with #2 is concerning for a malignant process. Will order a reticulocyte count, haptoglobin level, lactic dehydrogenase level. Will check RBC indices. Will consult hematology. Will also order vaginal ultrasound, and consult SENIOR SYSTEMS ADMINISTRATOR if indicated. #2 pancytopenia: Patient leukopenic, anemic, and thrombocytopenic This likely is concerning for underlying malignant process. Please see #1 for labs ordered. Will consult hematology for further assistance and possible bone marrow biopsy. #3 menorrhagia: We will check a vaginal ultrasound, urine test was negative. Will also order a CT scan of the abdomen and pelvis with and without contrast. #4 persistent headaches: Reported 8 month history of headaches. CAT scan of the brain was normal. Will order an MRI of the brain. #5 transaminitis: We will check a CT of the abdomen and pelvis. Will check hepatitis panel. #6 DVT GI prophylaxis: SCDs, Protonix Further treatment strategy will be implemented as per the clinical course Home Meds Discontinued Scripts Amoxicillin* (Amoxicillin*) 500 Mg Cap, 500 MG PO TID, #30 CAP Prov:SUNIL ZEPEDA MD 08/18/15 Acetaminophen-Codeine* (Acetaminophen-Cod #3*) 300-30 Mg Tab, 1 TAB PO Q4H Y for PAIN, #8 TAB Prov:SUNIL ZEPEDA MD 08/18/15 Ibuprofen* (Motrin*) 600 Mg Tab, 600 MG PO Q6, #14 TAB Prov:SUNIL ZEPEDA MD 08/18/15 Primary Care Provider Care Physician No Primary Pending Labs Laboratory Tests Test 12/04/16 00:53 12/04/16 06:40 White Blood Count 1.410^3/ul (4.8-10.8) 1.710^3/ul (4.8-10.8) Red Blood Count 2.5510^6/ul (4.20-5.40) 3.1210^6/ul (4.20-5.40) Hemoglobin 7.5g/dl (12.0-16.0) 9.1g/dl (12.0-16.0) Hematocrit 21.7% (37.0-47.0) 26.2% (37.0-47.0) Mean Corpuscular Volume 85.1fl (82.0-101.0) 84.0fl (82.0-101.0) Mean Corpuscular Hemoglobin 29.4pg (29.0-33.0) 29.2pg (29.0-33.0) Mean Corpuscular Hemoglobin Concent 34.6g/dl (32.0-37.0) 34.7g/dl (32.0-37.0) Red Cell Distribution Width 14.3% (11.5-14.5) 14.6% (11.5-14.5) Platelet Count 3510^3/UL (140-415) 2910^3/UL (140-415) Mean Platelet Volume 10.8fl (7.4-10.4) 10.3fl (7.4-10.4) Neutrophils % 9.5% (39.0-77.0) % (39.0-77.0) Lymphocytes % 83.3% (15.0-51.0) % (15.0-51.0) Monocytes % 5.1% (0.0-11.0) % (0.0-11.0) Eosinophils % 0.7% (0.0-7.0) % (0.0-7.0) Basophils % 0.7% (0.0-2.0) % (0.0-2.0) Nucleated Red Blood Cells % 11.6/100WBC (0.0-0.0) 13% (0-0) Neutrophils # 0.110^3/ul (1.6-7.5) 10^3/ul (1.6-7.5) Lymphocytes # 1.210^3/ul (0.8-2.9) 10^3/ul (0.8-2.9) Monocytes # 0.110^3/ul (0.3-0.9) 10^3/ul (0.3-0.9) Eosinophils # 0.010^3/ul (0.0-0.5) 10^3/ul (0.0-0.5) Basophils # 0.010^3/ul (0.0-0.1) 10^3/ul (0.0-0.1) Nucleated Red Blood Cells # 0.210^3/ul (0.0-0.0) 10^3/ul (0.0-0.0) Segmented Neutrophils % (Manual) 7% (39-77) Lymphocytes % (Manual) 83% (15-51) Reactive Lymphocytes % (Manual) 6% (0-0) Eosinophils % (Manual) 1% (0-7) Absolute Lymphocytes (Manual) 1.410^3/ul (0.8-2.9) Reactive Lymphocytes # 0.110^3/ul (0.0-0.0) Platelet Estimate DECREASED Polychromasia 2+ (0-0) Poikilocytosis 1+ (0-0) Anisocytosis 1+ (0-0) Microcytosis 1+ (0-0) Prothrombin Time 13.9Sec (12.2-14.2) Prothrombin Time Ratio 1.1 INR International Normalized Ratio 1.07 Activated Partial Thromboplast Time 29.5Sec (25.0-35.0) Sodium Level 141mmol/L (135-144) Potassium Level 4.3mmol/L (3.5-5.1) Chloride Level 107mmol/L (97-110) Carbon Dioxide Level 23mmol/L (21-31) Anion Gap 15 (8-16) Blood Urea Nitrogen 13mg/dl (7-20) Creatinine 0.69mg/dl (0.44-1.00) Glucose Level 100mg/dl (70-220) Calcium Level 9.3mg/dl (8.4-10.2) Total Bilirubin 0.8mg/dl (0.2-1.3) Direct Bilirubin 0.00mg/dl (0.00-0.20) Indirect Bilirubin 0.8mg/dl (0-1.1) Aspartate Amino Transf (AST/SGOT) 69IU/L (15-46) Alanine Aminotransferase (ALT/SGPT) 118IU/L (13-69) Alkaline Phosphatase 252IU/L (42-121) Total Protein 8.1g/dl (6.1-8.1) Albumin 4.4g/dl (3.3-4.9) Globulin 3.70g/dl (1.3-3.2) Albumin/Globulin Ratio 1.18 MILTON OLIVIA MD Dec 04, 2016 18:54
--- NOTE | 2016-12-04 20:50 | CONS ---
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 As stated yesterday, pt will need to be transferred to high level of care as Acute Leukemia, namely B cell ALL, CANNOT be treated at this hospital. This is beyond my scope of practice and should be treated at a tertiary care center specializes in treating hematologic malignances and performing bone marrow transplants. Pt can be transferred to [facility], [facility] or [facility] who treat these diseases with specialized multidisciplinary teams -pt has emergency medi-berenice only and will have ot wait for insurance to clear and for a bed a tertiary care center -in the mean time we will continue to support her with blood transfusions and antibiotics if necessary -will f/u CBC tomorrow. continue to keep Hg> 8 and platelets > 10 -will draw blood cx and check UA as patient has very high chance of becoming infected given she does not have a functioning immune system. can hold on antibiotics for now, but if she spikes a fever would have a low threshold to start antibiotics Problems: Consultation Date/Type/Reason Admit Date/Time Dec 02, 2016 at 18:56 Initial Consult Date 12/03/16 Type of Consultation: Hematology Reason for Consultation Acute leukemia Referring Provider: MILTON OLIVIA MD 24 HR Interval Summary Free Text/Dictation pt is less fatigued and dizzy after her blood transfusion. prelim peripheral smear reveals blasts Exam/Review of Systems Vital Signs Vitals Vital Signs Date Time Temp Pulse Resp B/P Pulse Ox O2 Delivery O2 Flow Rate FiO2 12/04/16 08:08 99.0 76 18 138/82 99 12/02/16 23:14 Room Air Intake and Output 12/03/16 12/03/16 12/04/16 15:00 23:00 07:00 Intake Total 250 ml 1250 ml Balance 250 ml 1250 ml Exam Constitutional: alert, oriented Psych: no complaints Head: normocephalic Eyes: nl conjunctiva ENMT: nl external ears & nose Neck: non-tender, supple Respiratory: clear to auscultation, normal air movement Cardiovascular: regular rate and rhythm Gastrointestinal: soft Musculoskeletal: nl extremities to inspection, nl gait and stance Extremities: normal pulses Results Result Diagram: 12/04/16 0640 12/04/16 0640 Results 24 hrs Laboratory Tests Test 12/04/16 00:53 12/04/16 06:40 White Blood Count 1.4 L 1.7 #L Red Blood Count 2.55 L 3.12 #L Hemoglobin 7.5 L 9.1 #L Hematocrit 21.7 L 26.2 #L Mean Corpuscular Volume 85.1 84.0 Mean Corpuscular Hemoglobin 29.4 29.2 Mean Corpuscular Hemoglobin Concent 34.6 34.7 Red Cell Distribution Width 14.3 14.6 H Platelet Count 35 L 29 *L Mean Platelet Volume 10.8 H 10.3 Neutrophils % 9.5 L Lymphocytes % 83.3 H Monocytes % 5.1 Eosinophils % 0.7 Basophils % 0.7 Nucleated Red Blood Cells % 11.6 H 13 H Neutrophils # 0.1 L Lymphocytes # 1.2 Monocytes # 0.1 L Eosinophils # 0.0 Basophils # 0.0 Nucleated Red Blood Cells # 0.2 H Segmented Neutrophils % (Manual) 7 L Lymphocytes % (Manual) 83 H Reactive Lymphocytes % (Manual) 6 H Eosinophils % (Manual) 1 Absolute Lymphocytes (Manual) 1.4 Reactive Lymphocytes # 0.1 H Platelet Estimate DECREASED Polychromasia 2+ Poikilocytosis 1+ Anisocytosis 1+ Microcytosis 1+ Prothrombin Time 13.9 Prothrombin Time Ratio 1.1 INR International Normalized Ratio 1.07 Activated Partial Thromboplast Time 29.5 Sodium Level 141 Potassium Level 4.3 Chloride Level 107 Carbon Dioxide Level 23 Anion Gap 15 Blood Urea Nitrogen 13 Creatinine 0.69 Glucose Level 100 Calcium Level 9.3 Total Bilirubin 0.8 Direct Bilirubin 0.00 Indirect Bilirubin 0.8 Aspartate Amino Transf (AST/SGOT) 69 H Alanine Aminotransferase (ALT/SGPT) 118 H Alkaline Phosphatase 252 H Total Protein 8.1 Albumin 4.4 Globulin 3.70 H Albumin/Globulin Ratio 1.18 OMAR ZARCO M.D. Dec 04, 2016 20:50
== END 2016-12-04 11:50 | disposition left against medical advice (07) | DRG 835 ==
LOC: E/R 12:34 → MS4 18:56
PROVIDERS: ADMIT Family Medicine; ATTEND Family Medicine
PROC: 30233N1 Transfusion of Nonautologous Red Blood Cells into Peripheral Vein, Percutaneous Approach (ICD-10-PCS; 2016-12-02)
PROC: 07DR3ZX Extraction of Iliac Bone Marrow, Percutaneous Approach, Diagnostic (ICD-10-PCS; principal; 2016-12-03)
PROC: 30233R1 Transfusion of Nonautologous Platelets into Peripheral Vein, Percutaneous Approach (ICD-10-PCS; 2016-12-03)
DX: C91.00 Acute lymphoblastic leukemia not having achieved remission (principal); D61.818 Other pancytopenia; N92.0 Excessive and frequent menstruation with regular cycle; R51 Headache
CPT/HCPCS: 36430; 70450; 71010; 74177; 76830; 76856; 77012; 80053; 81001; 81003; 82105; 82728; 83010; 83036; 83540; 83615; 83690; 83735; 84100; 84484; 84703; 85025; 85045; 85610; 85730; 86644; 86704; 86706; 86708; 86709; 86803; 86850; 86900; 86901; 86920; 86945; 87040; 87340; 88305; 88313; 93005; J1940; C9113; J2250; J2270; J3010; J7030; P9016; P9035; Q9967

== ENCOUNTER 2018-07-13 10:18 | Emergency (ER) | payer MEDICAID, OTHER ==
[~2018-07-13] VITALS: Ht 160 cm; Wt 65.9 kg
[2018-07-13] MEDS ORDERED: LORAZEPAM 2 MG INJ IV STA (10:22)
[2018-07-13 10:25] VITALS: Ht 160 cm; Wt 65.9 kg
[2018-07-13] MEDS ORDERED: ACYC400T2 PO (10:50)
[2018-07-13] MEDS ORDERED: AMLO2.5T78 PO (10:51)
[2018-07-13] MEDS ORDERED: OMEP20CA16 PO (10:51)
[2018-07-13] MEDS ORDERED: LEVE250T5 PO (11:11)
[2018-07-13] MEDS ORDERED: SULF-182 PO (11:12)
[2018-07-13] MEDS ORDERED: LACO150T2 PO (11:13)
[2018-07-13] MEDS ORDERED: MET25 PO (11:14)
[2018-07-13] MEDS ORDERED: IBUP-1542 PO (11:45)
--- NOTE | 2018-07-13 12:35 | ERD ---
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 The patient was brought in by ambulance. She had a tonic-clonic seizure and fell to the ground and hit her head. She has a hematoma. She was initially postictal but is now better. She has headache. Her sugar was 127. She is taking her Keppra as directed. ROS All systems reviewed and are negative except as per history of present illness. Medications Home Meds Active Scripts Ibuprofen* (Motrin*) 600 Mg Tab, 600 MG PO Q6H PRN for PAIN AND OR ELEVATED TEMP, #30 TAB Prov:BRANDON ESPOSITO MD 07/13/18 Reported Medications Methotrexate* (Methotrexate*) 2.5 Mg Tab, 7.5 MG PO Q SUN, TAB 07/13/18 Lacosamide (Vimpat) 150 Mg Tablet, 150 MG PO BID, TAB 07/13/18 Sulfamethoxazole/Trimethoprim (Sulfamethoxazole-Tmp Ds Tablet) 1 Each Tablet, 1 EACH PO Q MON,WED,FRI, TAB 07/13/18 Levetiracetam* (Levetiracetam*) 250 Mg Tablet, 1000 MG PO BID, TAB 07/13/18 Omeprazole* (Omeprazole*) 20 Mg Capsule.dr, 20 MG PO DAILY, #30 CAP 07/13/18 Amlodipine Besylate* (Amlodipine Besylate*) 2.5 Mg Tablet, 2.5 MG PO DAILY, #30 TAB 07/13/18 Acyclovir* (Acyclovir*) 400 Mg Tablet, 400 MG PO BID, TAB 07/13/18 Allergies Allergies: Coded Allergies: No Known Allergy (Unverified , 07/13/18) PMhx/Soc History of Surgery: No Anesthesia Reaction: No Hx Neurological Disorder: Yes (EPILEPSY) Hx Respiratory Disorders: No Hx Cardiac Disorders: No Hx Psychiatric Problems: No Hx Miscellaneous Medical Probl: Yes (ANEMIA) Hx Alcohol Use: No Hx Substance Use: No Hx Tobacco Use: No FmHx Family History: diabetes Physical Exam Vitals Vital Signs Date Temp Pulse Resp B/P (MAP) Pulse Ox O2 O2 Flow FiO2 Time Delivery Rate 07/13/18 98.7 93 18 139/89 98 10:25 (106) Physical Exam Const: No acute distress Head: Large hematoma to the posterior scalp Eyes: Normal Conjunctiva ENT: Normal External Ears, Nose and Mouth. Neck: Full range of motion. No meningismus. Resp: Clear to auscultation bilaterally Cardio: Regular rate and rhythm, no murmurs Abd: Soft, non tender, non distended. Normal bowel sounds Skin: No petechiae or rashes Back: No midline or flank tenderness Ext: No cyanosis, or edema Neur: Awake and alert Psych: Normal Mood and Affect Result Diagram: 07/13/18 1033 07/13/18 1033 Results 24 hrs Laboratory Tests Test 07/13/18 10:33 White Blood Count 4.0 10^3/ul Red Blood Count 3.65 10^6/ul Hemoglobin 11.6 g/dl Hematocrit 35.0 % Mean Corpuscular Volume 95.9 fl Mean Corpuscular Hemoglobin 31.8 pg Mean Corpuscular Hemoglobin Concent 33.1 g/dl Red Cell Distribution Width 13.1 % Platelet Count 190 10^3/UL Mean Platelet Volume 10.5 fl Immature Granulocytes % 0.200 % Neutrophils % 59.9 % Lymphocytes % 32.8 % Monocytes % 6.2 % Eosinophils % 0.7 % Basophils % 0.2 % Nucleated Red Blood Cells % 0.0 /100WBC Immature Granulocytes # 0.010 10^3/ul Neutrophils # 2.4 10^3/ul Lymphocytes # 1.3 10^3/ul Monocytes # 0.3 10^3/ul Eosinophils # 0.0 10^3/ul Basophils # 0.0 10^3/ul Nucleated Red Blood Cells # 0.0 10^3/ul Sodium Level 142 mmol/L Potassium Level 3.9 mmol/L Chloride Level 109 mmol/L Carbon Dioxide Level 22 mmol/L Anion Gap 11 Blood Urea Nitrogen 9 mg/dl Creatinine 0.55 mg/dl Est Glomerular Filtrat Rate mL/min > 60 mL/min Glucose Level 124 mg/dl Calcium Level 8.9 mg/dl Current Medications Medications Dose Sig/Nathan Start Time Status Last (Trade) Ordered Route PRN Stop Time Admin Dose Reason Admin Lorazepam 1 mg ONCE STAT 07/13/18 DC 07/13/18 (Ativan) IV 10:22 10:38 07/13/18 10:24 Procedures/MDM CT brain shows hematoma but no skull fracture or intracranial hemorrhage per radiology. CT cervical spine negative for fracture per radiology. Patient is a 42-year-old female with seizures who presents with a seizure. The patient had basically normal laboratory studies. CT scan of the brain and cervical spine were negative for fracture or serious traumatic injury. The patient was given Ativan to prevent further seizure. She will be discharged but will need to follow-up with her primary doctor within 24 to 48 hours. She will return sooner for any worsening symptoms. Departure Diagnosis: Primary Impression: Hematoma Additional Impression: Seizure Condition: Fair Patient Instructions: Hematoma, Seizure, Recurrent [Adult] Referrals: Your doctor Additional Instructions: Llame al doctor MAANA y elvia carri DIANE PARA DENTRO DE 1-2 DENNISON.Dgale a la secretaria que nosotros le instruimos hacer esta diane.Avise o llame si montoya condicin se empeora antes de la diane. Regresa aqui si peor o no mejor. BRANDON ESPOSITO MD July 13, 2018 12:35
[2018-07-13 13:16] VITALS: BP 138/84; PULSE 80; RESP 20
== END 2018-07-13 13:17 | disposition home or self-care (01) ==
LOC: E/R 10:18
DX: S00.03XA Contusion of scalp, initial encounter (principal); G40.909 Epilepsy, unspecified, not intractable, without status epilepticus; R40.2142 Coma scale, eyes open, spontaneous, at arrival to emergency department; R40.2362 Coma scale, best motor response, obeys commands, at arrival to emergency department; R40.2252 Coma scale, best verbal response, oriented, at arrival to emergency department; W22.8XXA Striking against or struck by other objects, initial encounter; Y92.219 Unspecified school as the place of occurrence of the external cause; Z85.6 Personal history of leukemia
CPT/HCPCS: 36415; 70450; 72125; 80048; 85025; 96374; J2060; Z7502; Z7610

== ENCOUNTER 2018-12-16 23:53 | Emergency (ER) | payer OTHER ==
[~2018-12-16] VITALS: Ht 157.5 cm; Wt 91.8 kg
[~2018-12-16 23:53] MED LIST changes: -ACET1TAB40 PO; +ACYC400T2 PO; +AMLO2.5T78 PO; -AMOX500C2 PO; +LACO150T2 PO; +LEVE250T5 PO; +MET25 PO; +OMEP20CA17 PO; +SULF-182 PO
[2018-12-16] MEDS ORDERED: LEVETIRACETAM 1000 MG (PMX) 100 ML IVPB STA (23:58)
[2018-12-17 00:02] VITALS: Ht 157.5 cm; Wt 91.8 kg
[2018-12-17] MEDS ORDERED: LORAZEPAM 2 MG INJ IV ONE (01:30)
[2018-12-17 04:31] VITALS: BP 132/87; PULSE 88; RESP 18
== END 2018-12-17 04:32 | disposition home or self-care (01) ==
LOC: E/R 23:53
DX: G40.909 Epilepsy, unspecified, not intractable, without status epilepticus (principal); R40.2142 Coma scale, eyes open, spontaneous, at arrival to emergency department; R40.2352 Coma scale, best motor response, localizes pain, at arrival to emergency department; R40.2232 Coma scale, best verbal response, inappropriate words, at arrival to emergency department
CPT/HCPCS: 70450; 80048; 82962; 84703; 93005; 96374; 96375; J1953; J2060; Z7502